=== PATIENT | female | born 1975 | race Caucasian/White ===

== ENCOUNTER 2021-10-26 12:50 | Emergency (ER) | payer BC ==
--- OUTSIDE RECORDS SUMMARY | 2021-10-26 12:53 | XMS REPORT | Continuity of Care Document ---
:1975 Author Organization [facility] t Address [facility] [place] [address] Care Team Providers Name Role Phone Yamile Attending Clinician Unavailable ORTIZ Attending Clinician Unavailable Anjana Attending Clinician Unavailable Yamile Admitting Clinician Unavailable ORTIZ Admitting Clinician Unavailable Anjana Admitting Clinician Unavailable Payers Payer Name Policy Type Policy Number Effective Date Expiration Date Rikki stephon [facility]: ALTHEA [id number] 2019 ADVANTAGE (HMO) 00:00:00 Problems Condition Condition Condition Status Onset Resolution Last Treating Co mments Source Name Details Category Date Date Treatment Clinician Date 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:00: [facility] depression Depression 00 al [facility] Outre [facility] Program Psychoacti Psychoacti Problem Active M [facility] ve ve da substance 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 Anxiety Anxiety Problem Active [place] disorder Disorder [facility] Primary Primary Problem Active [place] insomnia Insomnia [facility] Has Has Problem Active [place] "spasms" "Spasms" [facility] Dependent Dependent Problem Active [facility] drug abuse Drug Abuse da [facility] Outreac h Program Allergies, Adverse Reactions, Alerts Allergy Allergy Status Severity Reaction(s) Onset Inactive Treating Comm ents Source Name Type Date Date Clinician SULFA Allergy Active [place] (SULFONA to da [facility] Medical ANTIBIOT e Group ICS) Social History Smoking Status Start Date Stop Date Source Former Smoker [facility] Medications Ordered Filled Start Stop Current Ordering Indication Dosage Frequency Signature Comments Components Source Medication Medication Date Date Medication? Clinician (SIG) Name Name buprenorphi buprenorphi No buprenorph [place] ne 4 ne 4 ine 4 da mg-naloxone mg-naloxone mg-naloxon Medical 1 mg 1 mg e 1 mg Group sublingual sublingual sublingual film film film DISSOLVE 1 DISSOLVE 1 DISSOLVE 1 TO 2 FILM TO 2 FILM TO 2 FILM SUBLINGUALL SUBLINGUALL SUBLINGUAL Y TWICE A Y TWICE A LY TWICE A DAY DAY DAY diazepam 10 diazepam 10 No diazepam [place] mg tablet 1 mg tablet 1 10 mg da tab po TID tab po TID tablet 1 Medical tab po TID Group hydroxyzine hydroxyzine No hydroxyzin [place] HCl 25 mg HCl 25 mg e HCl 25 d a tablet PRN tablet PRN mg tablet Medical PRN Group ibuprofen ibuprofen No ibuprofen [place] 600 mg 600 mg 600 mg da tablet PRN tablet PRN tablet PRN Medical Group Medrol Medrol No 1dose Q1D Medrol [place] (Joni) 4 mg (Joni) 4 mg pk(s) (Joni) 4 mg da tablets in tablets in tablets in Medical a dose pack a dose pack a dose Group Take 1 dose Take 1 dose pack Take pk every pk every 1 dose pk day by oral day by oral every day route as route as by oral directed. directed. route as directed. zolpidem 10 zolpidem 10 No zolpidem [place] mg tablet mg tablet 10 mg da TAKE 1 TAKE 1 tablet Medical TABLET BY TABLET BY TAKE 1 Landon up MOUTH AT MOUTH AT TABLET BY BEDTIME BEDTIME MOUTH AT NEEDEDNO NEEDEDNO BEDTIME T T NEEDEDN CONTRACTED CONTRACTED OT BC/BS BC/BS CONTRACTED BC/BS alprazolam alprazolam No alprazolam [place] 0.25 mg 0.25 mg 0.25 mg da tablet tablet tablet [facility] Outre[facility] amoxicillin amoxicillin No amoxicilli [place] 500 500 n 500 da mg-potassiu mg-potassiu mg-potassi [facility] m m um al clavulanate clavulanate clavulanat Health 125 mg 125 mg e 125 mg Outreac tablet tablet tablet h Program amoxicillin amoxicillin No amoxicilli [place] [phone] n 875 da mg-potassiu mg-potassiu mg-potassi [facility] m m um al clavulanate clavulanate clavulanat Health 125 mg 125 mg e 125 mg Outreac tablet tablet tablet h Program aripiprazol aripiprazol No aripiprazo [place] e 15 mg e 15 mg le 15 mg da tablet tablet tablet [facility] buprenorphi buprenorphi No buprenorph [place] ne 4 ne 4 ine 4 da mg-naloxone mg-naloxone mg-naloxon [facility] 1 mg 1 mg e 1 mg al sublingual sublingual sublingual Health film film film Outreac DISSOLVE 1 DISSOLVE 1 DISSOLVE 1 h TO 2 FILM TO 2 FILM TO 2 FILM Program SUBLINGUALL SUBLINGUALL SUBLINGUAL Y TWICE A Y TWICE A LY TWICE A DAY DAY DAY buprenorphi buprenorphi No buprenorph [place] ne 8 ne 8 ine 8 da mg-naloxone mg-naloxone mg-naloxon [facility] 2 mg 2 mg e 2 mg al sublingual sublingual sublingual Health film film film Outreac h Program diazepam 10 diazepam 10 No diazepam [place] mg tablet mg tablet 10 mg da tablet [facility] Outreac [facility] Program diazepam 2 diazepam 2 No diazepam 2 [place] mg tablet mg tablet mg tablet da [facility] Outreac [facility] Program diazepam 5 diazepam 5 No diazepam 5 [place] mg tablet mg tablet mg tablet da [facility] Outreac h Program doxepin 10 doxepin 10 No doxepin 10 [place] mg capsule mg capsule mg capsule da [facility] Outreac h Program duloxetine duloxetine No duloxetine [place] 30 mg 30 mg 30 mg da capsule,del capsule,del capsule,de [facility] ayed ayed layed al release release release Health Take 1 Take 1 Take 1 Outreac capsule capsule capsule h every day every day every day Program by oral by oral by oral route in route in route in the morning the morning the for 7 days. for 7 days. morning for 7 days. hydrocodone hydrocodone No hydrocodon [place] 10 10 e 10 da mg-acetamin mg-acetamin mg-acetami [facility] ophen 325 ophen 325 nophen 325 al mg tablet mg tablet mg tablet Health Outreac h Program hydrocodone hydrocodone No hydrocodon [place] 5 5 e 5 da mg-acetamin mg-acetamin mg-acetami [facility] ophen 325 ophen 325 nophen 325 al mg tablet mg tablet mg tablet [facility] Outreac h Program hydroxyzine hydroxyzine No hydroxyzin [place] HCl 25 mg HCl 25 mg e HCl 25 d a tablet tablet mg tablet [facility] Outreac h Program ketorolac ketorolac No ketorolac [place] 10 mg 10 mg 10 mg da tablet tablet tablet [facility] methylpredn methylpredn No methylpred [place] isolone 4 isolone 4 nisolone 4 da mg tablets mg tablets mg tablets [facility] in a dose in a dose in a dose al pack pack pack [facility] Outreac h Program oxycodone oxycodone No oxycodone [place] 10 mg 10 mg 10 mg da tablet tablet tablet [facility] Out[facility] oxycodone oxycodone No oxycodone [place] 30 mg 30 mg 30 mg da tablet tablet tablet [facility] penicillin penicillin No penicillin [facility] V potassium V potassium V d a 500 mg 500 mg potassium [facility] p tablet tablet 500 mg al tablet [facility] Outreac h Program promethazin promethazin No promethazi [place] e 25 mg e 25 mg ne 25 mg da tablet tablet tablet [facility] Outre[facility] Program trazodone trazodone No trazodone [facility] 100 mg 100 mg 100 mg da tablet tablet tablet [facility] Out[facility] zolpidem 10 zolpidem 10 No zolpidem [facility] mg tablet mg tablet 10 mg da TAKE 1 TAKE 1 tablet [facility] TABLET BY TABLET BY TAKE 1 al MOUTH AT MOUTH AT TABLET BY He alth BEDTIME BEDTIME MOUTH AT Outreac NEEDEDNO NEEDEDNO BEDTIME h T T NEEDEDN Program CONTRACTED CONTRACTED OT BC/BS BC/BS CONTRACTED BC/BS zolpidem 5 zolpidem 5 No zolpidem 5 [facility] mg tablet mg tablet mg tablet da [facility] zolpidem ER zolpidem ER No zolpidem [place] 12.5 mg 12.5 mg ER 12.5 mg da tablet,exte tablet,exte tablet,ext [facility] nded nded ended al release,mul release,mul release,mu Health tiphase tiphase ltiphase Outre ac h Program Vital Signs Vital Name Observation Time Observation Value Comments Source Height 2020-07-10 00:00:00 66 [in_i] [facility] BMI (Body Mass 2020-07-10 00:00:00 23.4 kg/m2 [facility] Medical Index) Group Body Weight 2020-07-10 00:00:00 2320 [oz_av] [facility] BP Diastolic 2020-06-25 00:00:00 65 mm[Hg] [facility] Height 2020-06-25 00:00:00 66 [in_i] [facility] BMI (Body Mass 2020-06-25 00:00:00 23.6 kg/m2 [facility] Medical Index) Group BP Systolic 2020-06-25 00:00:00 92 mm[Hg] [facility] Body Weight 2020-06-25 00:00:00 2342 [oz_av] [facility] BP Diastolic 2019-05-24 00:00:00 82 mm[Hg] [facility] Height 2019-05-24 00:00:00 66 [in_i] [facility] BMI (Body Mass 2019-05-24 00:00:00 28.7 kg/m2 [facility] Medical Index) Group BP Systolic 2019-05-24 00:00:00 125 mm[Hg] [facility] Body Weight 2019-05-24 00:00:00 2848 [oz_av] [facility] Height 2019-05-02 00:00:00 66 [in_i] [facility] BP Diastolic 2019-04-21 00:00:00 67 mm[Hg] [facility] Height 2019-04-21 00:00:00 66 [in_i] [facility] BMI (Body Mass 2019-04-21 00:00:00 28.1 kg/m2 [facility] Medical Index) Group BP Systolic 2019-04-21 00:00:00 107 mm[Hg] [facility] Body Weight 2019-04-21 00:00:00 2780.8 [oz_av] [facility] 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 BP Diastolic 2019-03-07 00:00:00 72 mm[Hg] [facility] Height 2019-03-07 00:00:00 66 [in_i] [facility] BMI (Body Mass 2019-03-07 00:00:00 26.7 kg/m2 [facility] Medical Index) Group BP Systolic 2019-03-07 00:00:00 109 mm[Hg] [facility] Body Weight 2019-03-07 00:00:00 165.5 [facility] BP Diastolic 2019-02-14 00:00:00 74 mm[Hg] [facility] Height 2019-02-14 00:00:00 66 [in_i] [facility] BMI (Body Mass 2019-02-14 00:00:00 26.7 kg/m2 [facility] Medical Index) Group BP Systolic 2019-02-14 00:00:00 112 mm[Hg] [facility] Body Weight 2019-02-14 00:00:00 165.4 [facility]lb[facility]av] [facility] Procedures Procedure Date / Time Performing Clinician Source Performed MRI, lumbar spine, w/o 2019-05-24 00:00:00 [facility] ord Medical contrast Group XR, lumbosacral spine, 2 2019-05-24 00:00:00 [facility] or 3 view Group TYMPANOMETRY 2019-03-07 00:00:00 [place] [facility], face, w/o contrast 2019-02-20 00:00:00 [facility] ord Medical Group TYMPANOMETRY 2019-02-14 00:00:[address] [place] [facility] [address] [facility] [address], face, w/o contrast 2019-02-14 00:00:00 [facility] Plan of Care Planned Activity Planned Date Details Comments Source Instructions [facility] Out[facility] Program Encounters Start End Encounter Admission Attending Care Care Encounter Source Date/Time Date/Time Type Type Clinicians Facility Department ID 2021-02-26 2021-02-26 Outpatient Yamile BROWNE [facility] [id number] [place] 04:19:00 04:19:00 922 Medical Group 2020-12-01 2020-12-01 Outpatient LINWOOD [place] [id number] [place] 12:54:00 12:54:00 [facility] 2020-10-28 2020-10-28 Outpatient LINWOOD [place] [id number] [place] 01:01:00 01:01:00 [facility]ILVANA 0524 [facility] 2020-09-23 2020-09-23 Outpatient LINWOOD G[place] [id number] [place] 01:03:00 01:03:00 _[facility]ILVANA 0419 [facility] 2020-08-09 2020-08-09 Outpatient LINWOOD G[place]ARLOS [place] [id number] [place] 12:13:00 12:13:00 _SILVANA 0315 [facility] 2020-08-06 2020-08-06 Outpatient LINWOOD [place] [id number] [place] 05:31:00 05:31:00 _SILVANA 0302 [facility] 2020-08-06 2020-08-06 Silvana [facility] - [id number] M atagopaula 00:00:00 00:00:00 Negrita atkinson, RESIDENT ENGINEER: [facility] [address] [place] [facility] [address] Jennifer aden , Ph. [phone] 2020-07-29 Outpatient LINWOOD [place] [id number] [place] 05:49:00 05:49:00 [facility] 2020-07-29 2020-07-29 Enrique MARIN [place] - [id number] M javiergopaula 00:00:00 00:00:00 Leticia Montoya MD: [facility] Epi [facility]op [address] [facility] [address] [facility] , Ph. [phone] 2020-07-10 Outpatient Zuniga_F MMG MMG [id number] [place] 03:55:00 03:55:00 203 da Medical Group 2020-07-10 2020-07-10 Outpatient Zuniga_F MMG MMG [id number] [place] 03:55:00 03:55:00 204 da [facility] Group 2020-07-10 2020-07-10 Jl [facility] [place] - [id number] [place] 00:00:00 00:00:00 Betty Mathur MD: [address] [place] [address] [address], [place] [address] , Ph. 2020-07-09 2020-07-09 Outpatient Zuniga_F MMG MMG [id number] [place] 11:43:00 11:43:00 202 da [facility] Group 2020-06-25 2020-06-25 Outpatient Zuniga_F MMG MMG [id number] [place] 03:10:00 03:10:00 119 da [facility] Group 2020-06-25 2020-06-25 Outpatient Zuniga_F MMG MMG [id number] [place] 03:10:00 03:10:00 120 da [facility] 2020-06-25 2020-06-25 Lj MM [place] - [id number] [place] 00:00:00 00:00:00 Betyt Mathur MD: [address] [place] [address] 201, [place] [address] , Ph. 2020-06-24 2020-06-24 Outpatient Zuniga_F MMG [facility] [id number] [place] 05:31:00 05:31:00 118 Medical Group 2020-06-20 2020-06-20 Outpatient Ambeaux MMG MM [id number] [place] 12:13:00 12:13:00 114 Medical Group 2020-04-24 2020-04-24 Outpatient Ambeaux MMG MM [id number] [place] 02:30:00 02:30:00 118 Medical Group 2019-07-12 2019-07-12 Outpatient Ambeaux MMG MM [id number] [place] 12:04:00 12:04:00 205 Medical Group 2019-06-16 2019-06-16 Outpatient Ambeaux MMG MM [id number] [place] 09:35:00 09:35:00 110 Medical Group 2019-05-24 2019-05-24 Fransisco [facility] [place] - [id number] M [facility] 00:00:00 00:00:00 Discovery Anjana da PA: [address] [place] [address] - [address] [place] [address] [place] [address] , Ph. 2019-05-02 2019-05-02 Fransisco [facility] [place] - [id number] M [facility] 00:00:00 00:00:00 Discovery Anjana da PA: [address] [place] [address] - [address], [place] [address] , Ph. 2019-04-21 2019-04-21 Fransisco [facility] [place] - [id number] M [facility] 00:00:00 00:00:00 Discovery Anjana da PA: [address] [place] [address] - [address], [place] [address] , Ph. 2019-03-07 2019-03-07 Gayathri [facility] [place] - [id number] [place] 00:00:00 00:00:00 MD Annemarie: [address], [place] - [address], [facility] [place] [facility] [place] [address] , Ph. 2019-02-14 2019-02-14 Anthonyjani [place] [facility] [id number] [facility]00 MD Annemarie: [address], [place] - [address], [facility], [facility] [place] [address] , Ph. Results Test Description Test Time Test Comments Results Result Comments Source CBC W Auto Differential panel - Blood 2019-04-25 11:08:00 Test Item Value Reference Range Interpretation Comme nts white blood count (test code = white blood count) 7.1 K/uL 4.0- 11.5 red blood count (test code = red blood count) 4.06 M/uL 3.80-5.2 0 hemoglobin (test code = hemoglobin) 13.6 g/dL 10.5-15.7 hematocrit (test code = hematocrit) 40.8 % 34.0-50.0 Erythrocyte mean corpuscular volume [Entitic volume] (test 100.5 fL 86-100 H code = 19724-8) mean corpuscular hemoglobin (test code = mean corpuscular 33.5 pg 26.2-33.4 H hemoglobin) mean corpuscular HGB conc (test code = mean corpuscular HGB 33.3 g/ dL 30-34 conc) red cell distribution width (test code = red cell 11.8 % 12.0 -15.5 L distribution width) platelet count (test code = platelet count) 266 K/uL 165-450 mean platelet volume (test code = mean platelet volume) 10.6 fL 9.4-12.6 Neutrophils.segmented/100 leukocytes in Blood (test code = 71.3 % 44.4-80.1 87975-2) Granulocytes Immature [#/volume] in Blood (test code = 0.0 K/uL 0.0-0.03 63119-6) lymphocyte% (test code = lymphocyte%) 20.9 % 10.0-50.0 mono % (test code = mono %) 6.3 % 3.6-12.0 eos % (test code = eos %) 0.6 % 0.0-5.4 Basophils/100 leukocytes in Unspecified specimen (test code 0.6 % 0.1-1.2 = 21764-0) Neutrophils.band form [#/volume] in Blood (test code = 5.10 K/uL 1.56-6.13 28653-2) Lymphocytes [#/volume] in Unspecified specimen by Automated 1.5 K/u L 1.18-3.74 count (test code = 82277-4) mono # (test code = mono #) 0.45 K/uL 0.24-0.86 eos # (test code = eos #) 0.04 K/uL 0.04-0.36 basophil # (test code = basophil #) 0.04 K/uL 0.01-0.08 NRBC% (test code = NRBC%) 0 /100 WBC 0-0.2 NRBC# (test code = NRBC#) 0 K/uL [facility], [id number] 11:08:00 NeutrophilsBandLymphocyteMonocytePlatelet EstimateMa[facility] Comprehensive metabolic 2000 panel - Serum or [id number] 11:08:00 Test Item Value Reference Range Interpretation Comments Glucose [Mass/volume] in Serum or 96 mg/dL 74-106 Plasma (test code = 2345-7) Urea nitrogen [Mass/volume] in 16 mg/dL 6-20 Serum or Plasma (test code = 3094-0) osmolality calculated,serum (test 279 mOsm/kg 280-300 L code = osmolality calculated,serum) creatinine (test code = 0.6 mg/dL 0.50-0.90 creatinine) glomerular filtration rate (test >60.00 code = glomerular filtration rate) Urea nitrogen/Creatinine [Mass 26.7 12-20 H Ratio] in Serum or Plasma (test code = 3097-3) sodium level (test code = sodium 139 mmol/L 135-145 level) potassium level (test code = 3.6 mmol/L 3.5-5.2 potassium level) chloride level (test code = 99 mmol/L 98-108 chloride level) CO2 (test code = CO2) 29 mmol/L 21-32 anion gap (test code = anion gap) 14.6 mEq/L 12-20 calcium level (test code = 9.5 mg/dL 8.6-10.0 calcium level) total protein (test code = total 7.8 g/dL 6.6-8.7 protein) albumin (test code = albumin) 4.8 g/dL 3.5-5.2 globulin (test code = globulin) 3.0 gm/dL A/G ratio (test code = A/G ratio) 1.6 >1.0 bilirubin,total (test code = <0.3 0.0-1.2 bilirubin,total) AST/SGOT (test code = AST/SGOT) 16 U/L 15-32 Alanine aminotransferase 15 U/L 0-33 [Enzymatic activity/volume] in Serum or Plasma (test code = 1742-6) Alkaline phosphatase [Enzymatic 58 U/L 35-105 activity/volume] in Serum or Plasma (test code = 6768-6) [facility] 1996 panel - Serum or [id number] 11:08:00 Test Item Value Reference Range Interpretation Comments cholesterol level (test code = 191 mg/dL 150-200 cholesterol level) triglycerides level (test code = 150 mg/dL <150 triglycerides level) HDL cholesterol (test code = HDL 65 mg/dL >65 cholesterol) LDL cholesterol direct (test code = 107 mg/dL <100 H LDL cholesterol direct) cholesterol risk ratio (test code = 2.938 cholesterol risk ratio) [facility] CenterHemoglobin A1c [Mass/volume] in [id number] 11:08:00 Test Item Value Reference Range Interpretation Comments Hemoglobin A1c [Mass/volume] in Blood 4.6 % 4.0-6.0 (test code = 33159-5) [facility] CenterThyrotropin [Units/volume] in Serum or [id number] 11:08:00 Test Item Value Reference Range Interpretation Comments Thyrotropin [Units/volume] in 1.86 uIU/mL 0.36-3.74 Serum or Plasma (test code = 3016-3) [facility] CenterTriiodothyronine resin uptake (T3RU) in Serum or Plasma 2019-04-25 11:08:00 Test Item Value Reference Range Interpretation Comments Triiodothyronine resin uptake (T3RU) 34.6 % 24.0-39.0 in Serum or Plasma (test code = 3050-2) [facility] CenterThyroxine (T4) [Mass/volume] in Serum or [id number] 11:08:00 Test Item Value Reference Range Interpretation Comments T4 (test code = T4) 8.1 ug/dL 4.5-11.7 [facility] CenterErythrocyte sedimentation [id number] 11:08:00 Test Item Value Reference Range Interpretation Comments erythrocyte sedimentation rate (test 14 mm/HR 0.00-20 code = erythrocyte sedimentation rate) [facility] CenterIron and Iron binding capacity panel - Serum or Plasma 2019-04-25 11:08:00 Test Item Value Reference Range Interpretation Comments iron (fe) (test code = iron (fe)) 48 ug/dL 37-145 total iron binding capacity (test 368 ug/dL 260-445 code = total iron binding capacity) Iron saturation [Molar fraction] in 13 % 12-45 Serum or Plasma (test code = 49854-7) [facility] CenterFolate+Cyanocobalamin [interpretation] in Serum or Blood 2019-04-25 11:08:00 Test Item Value Reference Range Interpretation Comments vitamin B12 (test code = vitamin 402.2 pg/mL 211-946 B12) folate (test code = folate) 15.64 NG/mL 4.78-24.2 [facility] CenterFerritin [Mass/volume] in Serum or [id number] 11:08:00 Test Item Value Reference Range Interpretation Comments ferritin (test code = ferritin) 31.7 NG/mL 13-150 [facility] CenterThyroxine (T4) free [Mass/volume] in Serum or Plasma 2019-04-25 11:08:00 Test Item Value Reference Range Interpretation Comments free T4 (test code = free T4) 1.42 NG/dL 0.93-1.7 [facility] CenterFollitropin [Units/volume] in Serum or [id number] 11:08:00 Test Item Value Reference Range Interpretation Comments follicle stimulating hormone 14.6 mIU/mL . (test code = follicle stimulating hormone) [facility] CenterLutropin [Units/volume] in Serum or [id number] 11:08:00 Test Item Value Reference Range Interpretation Comments luteinizing hormone (test code = 12.5 mIU/mL . luteinizing hormone) [facility] CenterProlactin [Mass/volume] in Serum or [id number] 11:08:00 Test Item Value Reference Range Interpretation Comments Prolactin [Mass/volume] in Serum 16.7 NG/mL 4.8-23.3 or Plasma (test code = 2842-3) [facility] CenterAcute hepatitis 2000 panel - Serum [id number] 11:08:00 Test Item Value Reference Range Interpretation Comments Cortisol [Mass/volume] in Serum or 7.6 ug/dL not estab. Plasma (test code = 2143-6) [facility] CenterCytomegalovirus IgG Ab [Units/volume] in [id number] 11:08:00 Test Item Value Reference Range Interpretation Comments CMV IgG Ab (test code = CMV IgG Ab) <0.60 0.00-0.59 [facility] CenterCytomegalovirus IgM Ab [Titer] in [id number] 11:08:00 Test Item Value Reference Range Interpretation Comments CMV IgM Ab (test code = CMV IgM Ab) <30.0 0.0-29.9 [facility] Centerebv vca ea & [id number] 11:08:00 Test Item Value Reference Range Interpretation Comments ebv Ab ea (test code = ebv Ab ea) >150.0 0.0-8.9 H Benji Paez virus capsid IgG Ab >600.0 0.0-17.9 H [Presence] in Serum (test code = 43929-4) [facility] CenterCyclic citrullinated peptide Ab [Units/volume] in Serum by [id number] 11:08:00 Test Item Value Reference Range Interpretation Comments ccp antibodies IgG/IgA (test code = 7 units 0-19 ccp antibodies IgG/IgA) [facility] W Auto Differential panel - [id number] 11:08:00 Test Item Value Reference Range Interpretation Comments white blood count (test code = 7.1 K/uL 4.0-11.5 white blood count) red blood count (test code = red 4.06 M/uL 3.80-5.20 blood count) hemoglobin (test code = 13.6 g/dL 10.5-15.7 hemoglobin) hematocrit (test code = 40.8 % 34.0-50.0 hematocrit) Erythrocyte mean corpuscular 100.5 fL 86-100 H volume [Entitic volume] (test code = 95754-4) mean corpuscular hemoglobin (test 33.5 pg 26.2-33.4 H code = mean corpuscular hemoglobin) mean corpuscular HGB conc (test 33.3 g/dL 30-34 code = mean corpuscular HGB conc) red cell distribution width (test 11.8 % 12.0-15.5 L code = red cell distribution width) platelet count (test code = 266 K/uL 165-450 platelet count) mean platelet volume (test code = 10.6 fL 9.4-12.6 mean platelet volume) Neutrophils.segmented/100 71.3 % 44.4-80.1 leukocytes in Blood (test code = 30868-1) Granulocytes Immature [#/volume] 0.0 K/uL 0.0-0.03 in Blood (test code = 78964-3) lymphocyte% (test code = 20.9 % 10.0-50.0 lymphocyte%) mono % (test code = mono %) 6.3 % 3.6-12.0 eos % (test code = eos %) 0.6 % 0.0-5.4 Basophils/100 leukocytes in 0.6 % 0.1-1.2 Unspecified specimen (test code = 12444-0) Neutrophils.band form [#/volume] 5.10 K/uL 1.56-6.13 in Blood (test code = 19718-9) Lymphocytes [#/volume] in 1.5 K/uL 1.18-3.74 Unspecified specimen by Automated count (test code = 92525-8) mono # (test code = mono #) 0.45 K/uL 0.24-0.86 eos # (test code = eos #) 0.04 K/uL 0.04-0.36 basophil # (test code = basophil 0.04 K/uL 0.01-0.08 #) NRBC% (test code = NRBC%) 0 /100 WBC 0-0.2 NRBC# (test code = NRBC#) 0 K/uL [facility], [id number] 11:08:00 NeutrophilsBandLymphocyteMonocytePlatelet [facility] Comprehensive metabolic 2000 panel - Serum or [id number] 11:08:00 Test Item Value Reference Range Interpretation Comments Glucose [Mass/volume] in Serum or 96 mg/dL 74-106 Plasma (test code = 2345-7) Urea nitrogen [Mass/volume] in 16 mg/dL 6-20 Serum or Plasma (test code = 3094-0) osmolality calculated,serum (test 279 mOsm/kg 280-300 L code = osmolality calculated,serum) creatinine (test code = 0.6 mg/dL 0.50-0.90 creatinine) glomerular filtration rate (test >60.00 code = glomerular filtration rate) Urea nitrogen/Creatinine [Mass 26.7 12-20 H Ratio] in Serum or Plasma (test code = 3097-3) sodium level (test code = sodium 139 mmol/L 135-145 level) potassium level (test code = 3.6 mmol/L 3.5-5.2 potassium level) chloride level (test code = 99 mmol/L 98-108 chloride level) CO2 (test code = CO2) 29 mmol/L 21-32 anion gap (test code = anion gap) 14.6 mEq/L 12-20 calcium level (test code = 9.5 mg/dL 8.6-10.0 calcium level) total protein (test code = total 7.8 g/dL 6.6-8.7 protein) albumin (test code = albumin) 4.8 g/dL 3.5-5.2 globulin (test code = globulin) 3.0 gm/dL A/G ratio (test code = A/G ratio) 1.6 >1.0 bilirubin,total (test code = <0.3 0.0-1.2 bilirubin,total) AST/SGOT (test code = AST/SGOT) 16 U/L 15-32 Alanine aminotransferase 15 U/L 0-33 [Enzymatic activity/volume] in Serum or Plasma (test code = 1742-6) Alkaline phosphatase [Enzymatic 58 U/L 35-105 activity/volume] in Serum or Plasma (test code = 6768-6) [facility] - [facility] or [id number] 11:08:00 Test Item Value Reference Range Interpretation Comments cholesterol level (test code = 191 mg/dL 150-200 cholesterol level) triglycerides level (test code = 150 mg/dL <150 triglycerides level) HDL cholesterol (test code = HDL 65 mg/dL >65 cholesterol) LDL cholesterol direct (test code = 107 mg/dL <100 H LDL cholesterol direct) cholesterol risk ratio (test code = 2.938 cholesterol risk ratio) [facility] CenterHemoglobin A1c [Mass/volume] in [id number] 11:08:00 Test Item Value Reference Range Interpretation Comments Hemoglobin A1c [Mass/volume] in Blood 4.6 % 4.0-6.0 (test code = 16419-5) [facility] CenterThyrotropin [Units/volume] in Serum or [id number] 11:08:00 Test Item Value Reference Range Interpretation Comments Thyrotropin [Units/volume] in 1.86 uIU/mL 0.36-3.74 Serum or Plasma (test code = 3016-3) [facility] CenterTriiodothyronine resin uptake (T3RU) in Serum or Plasma 2019-04-25 11:08:00 Test Item Value Reference Range Interpretation Comments Triiodothyronine resin uptake (T3RU) 34.6 % 24.0-39.0 in Serum or Plasma (test code = 3050-2) [facility] CenterThyroxine (T4) [Mass/volume] in Serum or [id number] 11:08:00 Test Item Value Reference Range Interpretation Comments T4 (test code = T4) 8.1 ug/dL 4.5-11.7 [facility] CenterErythrocyte sedimentation [id number] 11:08:00 Test Item Value Reference Range Interpretation Comments erythrocyte sedimentation rate (test 14 mm/HR 0.00-20 code = erythrocyte sedimentation rate) [facility] CenterIron and Iron binding capacity panel - Serum or Plasma 2019-04-25 11:08:00 Test Item Value Reference Range Interpretation Comments iron (fe) (test code = iron (fe)) 48 ug/dL 37-145 total iron binding capacity (test 368 ug/dL 260-445 code = total iron binding capacity) Iron saturation [Molar fraction] in 13 % 12-45 Serum or Plasma (test code = 41530-2) [facility] CenterFolate+Cyanocobalamin [interpretation] in Serum or Blood 2019-04-25 11:08:00 Test Item Value Reference Range Interpretation Comments vitamin B12 (test code = vitamin 402.2 pg/mL 211-946 B12) folate (test code = folate) 15.64 NG/mL 4.78-24.2 [facility] CenterFerritin [Mass/volume] in Serum or [id number] 11:08:00 Test Item Value Reference Range Interpretation Comments ferritin (test code = ferritin) 31.7 NG/mL 13-150 [facility] CenterThyroxine (T4) free [Mass/volume] in Serum or Plasma 2019-04-25 11:08:00 Test Item Value Reference Range Interpretation Comments free T4 (test code = free T4) 1.42 NG/dL 0.93-1.7 [facility] CenterFollitropin [Units/volume] in Serum or [id number] 11:08:00 Test Item Value Reference Range Interpretation Comments follicle stimulating hormone 14.6 mIU/mL . (test code = follicle stimulating hormone) [facility] CenterLutropin [Units/volume] in Serum or [id number] 11:08:00 Test Item Value Reference Range Interpretation Comments luteinizing hormone (test code = 12.5 mIU/mL . luteinizing hormone) [facility] CenterProlactin [Mass/volume] in Serum or [id number] 11:08:00 Test Item Value Reference Range Interpretation Comments Prolactin [Mass/volume] in Serum 16.7 NG/mL 4.8-23.3 or Plasma (test code = 2842-3) [facility] CenterAcute hepatitis 2000 panel - Serum [id number] 11:08:00 Test Item Value Reference Range Interpretation Comments Cortisol [Mass/volume] in Serum or 7.6 ug/dL not estab. Plasma (test code = 2143-6) [facility] CenterCytomegalovirus IgG Ab [Units/volume] in [id number] 11:08:00 Test Item Value Reference Range Interpretation Comments CMV IgG Ab (test code = CMV IgG Ab) <0.60 0.00-0.59 [facility] CenterCytomegalovirus IgM Ab [Titer] in [id number] 11:08:00 Test Item Value Reference Range Interpretation Comments CMV IgM Ab (test code = CMV IgM Ab) <30.0 0.0-29.9 [facility] Centerebv vca ea & [id number] 11:08:00 Test Item Value Reference Range Interpretation Comments ebv Ab ea (test code = ebv Ab ea) >150.0 0.0-8.9 H Benji Paez virus capsid IgG Ab >600.0 0.0-17.9 H [Presence] in Serum (test code = 38057-0) [facility] CenterCyclic citrullinated peptide Ab [Units/volume] in Serum by [id number] 11:08:00 Test Item Value Reference Range Interpretation Comments ccp antibodies IgG/IgA (test code = 7 units 0-19 ccp antibodies IgG/IgA) [facility]2019-10-01 15:25:00 Test Item Value Reference Range Interpretation Comments Right (test code = Type C Peak is on Left Right) Left (test code = Type A Normal Left) [facility]2019-09-10 14:51:53 Test Item Value Reference Range Interpretation Comments Right (test code = Right) Type A Normal Left (test code = Left) Type A Normal [facility]2019-09-10 14:51:53 Test Item Value Reference Range Interpretation Comments Right (test code = Right) Type A Normal Left (test code = Left) Type A Normal [facility]
[2021-10-26 15:01] LABS: Urine Blood Trace-intact (Negative); Urine Glucose Negative (Negative); Urine Protein Negative (Negative); Urine Specific Gravity 1.015 (1.005-1.030)
[2021-10-26 15:11] LABS: Absolute Lymphocytes (CBC) 1.6 K/uL (0.7-4.9); Hematocrit 43.1 % (36.0-45.0); Lymphocytes % 23.6 % (15.3-44.8); MPV 8.9 fL (7.6-11.3); RBC Red Blood Cell Count 4.53 M/uL (3.86-4.86)
[2021-10-26 15:16] LABS: Urine Bacteria <20 /HPF (<20); Urine RBC NONE SEEN /HPF (NONE SEEN)
[2021-10-26 15:16] LABS: Urine Specific Gravity/Preg 1.015 (1.005-1.030)
[2021-10-26 15:19] LABS: Barbiturates POSITIVE (NEGATIVE); Benzodiazepines POSITIVE (NEGATIVE); Cocaine NEGATIVE (NEGATIVE); METHAMPHETAM NEGATIVE (NEGATIVE); Methadone NEGATIVE (NEGATIVE); Opiates POSITIVE (NEGATIVE); Phencyclidine NEGATIVE (NEGATIVE); THC Cannibis POSITIVE (NEGATIVE)
[2021-10-26 15:27] LABS: Albumin 4.3 g/dL (3.4-5.0); Potassium 3.6 mmol/L (3.5-5.1); Protein, Total 7.9 g/dL (6.4-8.2)
[2021-10-26] MEDS ORDERED: PROMETHAZINE INJ 25 MG/ML AMP ONE (15:27)
[2021-10-26] MEDS ORDERED: NA CHLORIDE 0.9% 1,000 ML ONE (15:28)
[2021-10-26] MEDS ORDERED: FENTANYL CITR 100 MCG/2 ML ONE (15:28)
--- NOTE | 2021-10-26 16:19 | RAD REPORT ---
EXAM DESCRIPTION: US - Abdomen Exam Limited - 10/26/2021 4:11 pm CLINICAL HISTORY: ABD PAIN COMPARISON: Head Brain Wo Cont dated 07/18/2021; Ct Stroke Brain Wo Cont dated 07/11/2020No comparisons No comparisons FINDINGS: The gallbladder demonstrates multiple shadowing gallstones. No pericholecystic fluid or ga llbladder wall thickening. The common bile duct is upper limit of normal measuring 6 mm. The liver demonstrates no findings of intrahepatic biliary dilatation. IMPRESSION: Cholelithiasis. Mildly prominent common bile duct could indicate choledocholithiasis. Follow-up nonemergent MRCP may be of value.
[2021-10-26] MEDS ORDERED: KETOROLAC 30 MG/ML INJ ONE (16:32)
[2021-10-26] MEDS ORDERED: LIDOCAINE VISCOUS 2% SOLN 15 ML UDC ONE (16:54)
[2021-10-26] MEDS ORDERED: MAGNES/ALUMIN/SIMET 30ML UCUP ONE (16:54)
--- NOTE | 2021-10-26 17:50 | EDPHYS ---
Physician Documentation [facility] Name: Judy Garcia Age: 46 yrs Sex: Female : 1975 Arrival Date: 10/26/2021 Time: 12:56 Bed 2 Private MD: ED Physician Miguel Ángel Shrestha HPI: 10/26 15:00 This 46 yrs old Female presents to ER via Ambulatory with complaints of Abdominal Pain. cp 15:00 The patient presents with abdominal pain in the upper abdomen. The symptoms radiate to cp right back. Associated signs and symptoms: Pertinent positives: nausea and vomiting. The symptoms are described as constant. The patient has been recently seen by a physician: in [place], with similar presenting complaints, was given a prescription for pain medications, discharged and instructed to f/u with DR Cooper. 15:00 Patient reports she was diagnosed with gallstones and was seen by DR Cooper about 2 cp weeks ago. 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 - Social history:: Smoking status: Reported history of juuling and/or vaping. ROS: 15:05 Constitutional: Negative for body aches, chills, fever, poor PO intake. cp 15:05 Eyes: Negative for injury, pain, redness, and discharge. cp 15:05 ENT: Negative for drainage from ear(s), ear pain, sore throat, difficulty swallowing, difficulty handling secretions. 15:05 Cardiovascular: Negative for chest pain, edema, palpitations. 15:05 Respiratory: Negative for cough, shortness of breath, wheezing. 15:05 Abdomen/GI: Positive for abdominal pain, nausea, vomiting, Negative for diarrhea, constipation. 15:05 Back: Positive for radiated pain. 15:05 Neuro: Negative for altered mental status, dizziness, headache, weakness. 15:05 All other systems are negative. Exam: 15:10 Constitutional: The patient appears in no acute distress, alert, awake, cp non-diaphoretic, non-toxic, well developed, well nourished, uncomfortable. 15:10 Head/Face: Normocephalic, atraumatic. cp 15:10 Eyes: Periorbital structures: appear normal, Conjunctiva: normal, no exudate, no injection, Sclera: no appreciated abnormality, Lids and lashes: appear normal, bilaterally. 15:10 ENT: External ear(s): are unremarkable, Nose: is normal, Mouth: Lips: moist, Oral mucosa: pink and intact, moist, Posterior pharynx: Airway: no evidence of obstruction, patent. 15:10 Chest/axilla: Inspection: normal, Palpation: is normal, no crepitus, no tenderness. 15:10 Cardiovascular: Rate: normal, Rhythm: regular. 15:10 Respiratory: the patient does not display signs of respiratory distress, Respirations: normal, no use of accessory muscles, no retractions, labored breathing, is not present, Breath sounds: are clear throughout, no decreased breath sounds, no stridor, no wheezing. 15:10 Abdomen/GI: Inspection: abdomen appears normal, Bowel sounds: active, all quadrants, Palpation: soft, in all quadrants, moderate abdominal tenderness, in the epigastric area and right upper quadrant, rebound tenderness, is not appreciated, voluntary guarding, is elicited in the epigastric area and right upper quadrant. 15:10 Back: pain, that is moderate, of the mid back area. 15:10 Skin: no rash present. 15:10 Neuro: Orientation: to person, place \T\ time. Mentation: is normal. Vital Signs: 13:24 BP 100 / 54; Pulse 65; Resp 17; Temp 98.8; Pulse Ox 100% ; Weight 55.79 kg; Height 5 vg1 ft. 6 in. (167.64 cm); Pain 9/10; 15:30 BP 111 / 62; Pulse 62; ll1 18:50 BP 101 / 82; Pulse 62; Resp 16; Pulse Ox 100% ; Pain 6/10; ll1 13:24 Body Mass Index 19.85 (55.79 kg, 167.64 cm) vg1 MDM: 14:43 Patient medically screened. cp 17:30 Physician consultation: Koko Cooper MD was contacted at 17:30, regarding admission, cp to the medical/surgical unit. consult, patient's condition, reports concern for drug seeking behavior by patient and that patient has been discharged by multiple providers due to this concern. He has seen patient in clinic and is not available for consult. If patient can be discharged to home recommends f/u with another general surgeon as he is not currently in network for patient's insurance. 17:40 Physician consultation: Mor Mcfarlane MD was called at 17:40, was contacted at 17:40, regarding consult, patient's condition, will be happy to admit to his service and evaluate in morning for cholecystectomy. 18:00 Data reviewed: vital signs, nurses notes, lab test result(s), radiologic studies, cp ultrasound. 18:00 Counseling: I had a detailed discussion with the patient and/or guardian regarding: the cp historical points, exam findings, and any diagnostic results supporting the discharge/admit diagnosis, lab results, radiology results, the need for outpatient follow up, a general surgeon, to return to the emergency department if symptoms worsen or persist or if there are any questions or concerns that arise at home. Response to treatment: the patient's symptoms have markedly improved after treatment, and as a result, I will discharge patient. 18:10 ED course: Patient informed of lab results and results of today's US. Discussed option cp to admit overnight for surgical consult with DR Mcfarlane for cholecystectomy. Patient declines at this time and requests discharge to home to f/u with possibly DR Cooper. Patient was informed that DR Cooper reported he is not covered by her insurance, so patient was given info for DR Mcfarlane. I informed DR Mcfarlane of patient's decision to be discharged and he reports he will be happy to f/u in clinic. 10/26 14:45 Order name: CBC with Diff; Complete Time: 15:15 10/26 14:45 Order name: CMP; Complete Time: 15:28 10/26 15:29 Interpretation: Normal except: GFR 87; AST 14; GLOB 3.6. 10/26 14:45 Order name: Lipase; Complete Time: 15:28 10/26 15:29 Interpretation: LIP 61; Reviewed. 10/26 14:45 Order name: Urine Microscopic Only; Complete Time: 15:28 10/26 14:45 Order name: UDS; Complete Time: 15:28 10/26 15:01 Order name: Urine Dipstick-Ancillary; Complete Time: 15:15 EDMS 10/26 15:16 Interpretation: UBLD Trace-intact. cp 10/26 15:06 Order name: Urine --Ancillary (enter results); Complete Time: 15:28 em1 10/26 15:14 Order name: US Abdomen Limited: epigastric/RUQ; Complete Time: 16:22 cp 10/26 16:23 Interpretation: Report reviewed. cp 10/26 14:45 Order name: IV Saline Lock; Complete Time: 14:50 cp 10/26 14:45 Order name: Labs collected and sent; Complete Time: 14:50 cp 10/26 14:45 Order name: Urine Dipstick-Ancillary (obtain specimen); Complete Time: 15:01 cp 10/26 14:45 Order name: Urine Test (obtain specimen); Complete Time: 15:01 cp 10/26 16:24 Order name: PO challenge; Complete Time: 16:25 cp Administered Medications: 15:31 Drug: Phenergan (promethazine) 12.5 mg Route: IVP; Site: right antecubital; ll1 16:20 Follow up: Response: No adverse reaction; Nausea is decreased; RASS: Alert and Calm (0) ll1 15:31 Drug: fentaNYL (PF) 25 mcg Route: IVP; Site: right antecubital; ll1 16:20 Follow up: Response: No adverse reaction; Pain is unchanged, physician notified; RASS: ll1 Alert and Calm (0) 15:31 Drug: NS 0.9% 1000 ml Route: IV; Rate: 1 bolus; Site: right antecubital; ll1 16:20 Follow up: Response: No adverse reaction; IV Status: Completed infusion; IV Intake: ll1 1000ml 16:19 Drug: fentaNYL (PF) 25 mcg Route: IVP; Site: right antecubital; ll1 16:39 Follow up: Response: No adverse reaction; Pain is decreased ll1 16:38 Drug: Ketorolac 15 mg Route: IVP; Site: right antecubital; ll1 18:28 Follow up: Response: No adverse reaction ll1 16:54 Drug: GI Cocktail without - (Maalox Suspension 30 ml, Lidocaine Liquid 2 % 15 ll1 ml) Route: PO; 18:28 Follow up: Response: No adverse reaction ll1 18:27 Drug: fentaNYL (PF) 25 mcg Route: IVP; Site: right antecubital; ll1 19:16 Follow up: Response: No adverse reaction; Pain is decreased; RASS: Alert and Calm (0) ll1 Disposition Summary: 10/26/21 18:14 Discharge Ordered Location: Home(10/26/21 18:14) cp Problem: an ongoing problem(10/26/21 18:14) cp Symptoms: have improved(10/26/21 18:14) cp Condition: Stable(10/26/21 18:14) cp Diagnosis - Other cholelithiasis without obstruction(10/26/21 18:14) cp Followup: cp - With: Mor Mcfarlaen MD - When: Tomorrow - Reason: call office for follow up Discharge Instructions: - Discharge Summary Sheet cp - Cholelithiasis cp Forms: - Medication Reconciliation Form cp - Thank You Letter cp - Antibiotic Education cp - Prescription Opioid Use cp Prescriptions: - promethazine 25 mg Oral Tablet - take 1 tablet by ORAL route every 6 hours As needed; 20 tablet; Refills: 0, cp Product Selection Permitted - Tylenol-Codeine #3 300 mg-30 mg Oral - take 2 tablet by ORAL route every 8 hours; 14 tablet; Refills: 0, Product cp Selection Permitted Signatures: Dispatcher [employer] EDMS Phill Rowe PA PA cp Garcia, Victoria, RN RN vg1 Kaiden Bolton RN RN ll1 Corrections: (The following items were deleted from the chart) 15:29 15:29 Normal except: GFR 87. cp cp 15:29 15:29 Normal except: GFR 87; AST 14. cp cp 17:52 17:49 Home cp cp 17:52 17:49 an ongoing problem cp cp 17:52 17:49 have improved cp cp 17:52 17:49 Stable cp cp 17:52 17:49 Other cholelithiasis without obstruction cp cp 17:52 17:49 Nausea with vomiting, unspecified cp cp
--- NOTE | 2021-10-26 17:50 | ER ---
Nurse's Notes [facility] Name: Judy Garcia Age: 46 yrs Sex: Female : 1975 Arrival Date: 10/26/2021 Time: 12:56 Bed 2 Private MD: Diagnosis: Other cholelithiasis without obstruction Presentation: 10/26 13:22 Chief complaint: Patient states: Seen Dr Cooper about two weeks about gallstones; vg1 states went [facility] ED due to pain but was sent home with pain medication and to follow up with Dr Delgado; Pt states Epigastric and RUQ pain with nausea and "frothy vomit". Coronavirus screen: Vaccine status: Patient reports being unvaccinated. Client denies travel out of the [place] in the last 14 days. Ebola Screen: Patient denies exposure to infectious person. Patient denies travel to an Ebola-affected area in the 21 days before illness onset. Initial Sepsis Screen: Does the patient meet any 2 criteria? No. Patient's initial sepsis screen is negative. Does the patient have a suspected source of infection? No. Patient's initial sepsis screen is negative. Risk Assessment: Do you want to hurt yourself or someone else? Patient reports no desire to harm self or others. Onset of symptoms was October 25, 2021. 13:22 Method Of Arrival: Ambulatory [facility] 13:22 Acuity: MCKENZIE 3 vg1 Triage Assessment: 13:24 General: Appears uncomfortable, Behavior is cooperative. Pain: Complains of pain in vg1 epigastric area, posterior aspect of right lateral abdomen and right upper quadrant Pain currently is 9 out of 10 on a pain scale. Pain began 1 day ago. GI: Reports nausea, vomiting. 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 - Social history:: Smoking status: Reported history of juuling and/or vaping. Screenin:50 Abuse screen: Denies threats or abuse. Nutritional screening: No deficits noted. ll1 Tuberculosis screening: No symptoms or risk factors identified. Fall Risk Total Wilkerson Fall Scale indicates No Risk (0-24 pts). Assessment: 14:50 Reassessment: No changes from previously documented assessment. Patient and/or family ll1 updated on plan of care and expected duration. Pain level reassessed. Patient is alert, oriented x 3, equal unlabored respirations, skin warm/dry/pink. 15:45 Reassessment: No changes from previously documented assessment. Patient and/or family ll1 updated on plan of care and expected duration. Pain level reassessed. Patient is alert, oriented x 3, equal unlabored respirations, skin warm/dry/pink. 16:45 Reassessment: No changes from previously documented assessment. Patient and/or family ll1 updated on plan of care and expected duration. Pain level reassessed. Patient is alert, oriented x 3, equal unlabored respirations, skin warm/dry/pink. 17:45 Reassessment: No changes from previously documented assessment. Patient and/or family ll1 updated on plan of care and expected duration. Pain level reassessed. Patient is alert, oriented x 3, equal unlabored respirations, skin warm/dry/pink. 18:45 Reassessment: No changes from previously documented assessment. Patient and/or family ll1 updated on plan of care and expected duration. Pain level reassessed. Patient is alert, oriented x 3, equal unlabored respirations, skin warm/dry/pink. 18:50 GI: Bowel sounds present X 4 quads. Abd is soft Abdomen is tender to palpation in right ll1 upper quadrant. Vital Signs: 13:24 BP 100 / 54; Pulse 65; Resp 17; Temp 98.8; Pulse Ox 100% ; Weight 55.79 kg; Height 5 vg1 ft. 6 in. (167.64 cm); Pain 9/10; 15:30 BP 111 / 62; Pulse 62; ll1 18:50 BP 101 / 82; Pulse 62; Resp 16; Pulse Ox 100% ; Pain 6/10; ll1 13:24 Body Mass Index 19.85 (55.79 kg, 167.64 cm) vg1 ED Course: 12:56 Patient arrived in ED. ds1 13:24 Triage completed. vg1 13:24 Arm band placed on. vg1 13:52 Phill Rowe PA is PHCP. cp 13:52 Miguel Ángel Shrestha MD is Attending Physician. cp 15:03 Inserted saline lock: 20 gauge in right antecubital area, using aseptic technique. zm Blood collected. 15:03 Urine Microscopic Only Sent. zm 15:03 Lipase Sent. zm 15:03 CMP Sent. zm 15:03 CBC with Diff Sent. zm 15:03 UDS Sent. zm 16:13 US Abdomen Limited: epigastric/RUQ In Process Unspecified. EDMS 17:48 Koko Cooper MD is Referral Physician. cp 18:14 Mor Mcfarlane MD is Referral Physician. cp 18:15 Patient has correct armband on for positive identification. Bed in low position. Call ll1 light in reach. Side rails up X 1. Pulse ox on. NIBP on. 18:50 No provider procedures requiring assistance completed. IV discontinued, intact, ll1 bleeding controlled, No redness/swelling at site. Pressure dressing applied. Administered Medications: 15:31 Drug: Phenergan (promethazine) 12.5 mg Route: IVP; Site: right antecubital; ll1 16:20 Follow up: Response: No adverse reaction; Nausea is decreased; RASS: Alert and Calm (0) ll1 15:31 Drug: fentaNYL (PF) 25 mcg Route: IVP; Site: right antecubital; ll1 16:20 Follow up: Response: No adverse reaction; Pain is unchanged, physician notified; RASS: ll1 Alert and Calm (0) 15:31 Drug: NS 0.9% 1000 ml Route: IV; Rate: 1 bolus; Site: right antecubital; ll1 16:20 Follow up: Response: No adverse reaction; IV Status: Completed infusion; IV Intake: ll1 1000ml 16:19 Drug: fentaNYL (PF) 25 mcg Route: IVP; Site: right antecubital; ll1 16:39 Follow up: Response: No adverse reaction; Pain is decreased ll1 16:38 Drug: Ketorolac 15 mg Route: IVP; Site: right antecubital; ll1 18:28 Follow up: Response: No adverse reaction ll1 16:54 Drug: GI Cocktail without - (Maalox Suspension 30 ml, Lidocaine Liquid 2 % 15 ll1 ml) Route: PO; 18:28 Follow up: Response: No adverse reaction ll1 18:27 Drug: fentaNYL (PF) 25 mcg Route: IVP; Site: right antecubital; 1 19:16 Follow up: Response: No adverse reaction; Pain is decreased; RASS: Alert and Calm (0) 1 Medication: 19:15 VIS not applicable for this client. ll1 Intake: 16:20 IV: 1000ml; Total: 1000ml. ll1 Outcome: 17:49 Discharge ordered by MD. cp 18:14 Discharge ordered by MD. cp 18:50 Discharged to home ambulatory. 1 18:50 Condition: stable 18:50 Discharge instructions given to patient, Instructed on discharge instructions, follow up and referral plans. no drinking with medication, no driving heavy equipment, medication usage, Demonstrated understanding of instructions, follow-up care, medications, Prescriptions given X 2. 19:05 Patient left the ED. [email or web address] Signatures: Dispatcher [employer] EDIL Bonnie Perez ds1 Phill Rowe PA PA cp Jackson, Kandis kj1 Daina Sunshine RN RN [email or web address] Kaiden Bolton RN RN ll1 Sophia Cooper
[2021-10-26 19:12] VITALS: BP 100/54; TEMP 98.8; O2SAT 100
== END 2021-10-26 19:05 | disposition home or self-care (01) ==
LOC: ER 12:50
DX: K80.80 Other cholelithiasis without obstruction (principal); Z88.2 Allergy status to sulfonamides; L93.0 Discoid lupus erythematosus; M79.7 Fibromyalgia; M06.9 Rheumatoid arthritis, unspecified
CPT/HCPCS: 96361; 85025; 36415; 81025; 83690; 80053; 80307; 76705; 96375; 96374; 99284; J2550; J3010; J7030; 81003; 81015